=== PATIENT | male | born 1965 | race Caucasian/White ===

== ENCOUNTER 2016-09-20 01:06 | Emergency (ER) | payer OTHER ==
--- NOTE | ~2016-09-20 | ER ---
PATIENT'S NAME: [facility] AGE: 51 Y [address] ROOM: [place] [id number] LOCATION: [facility] ADMIT DATE: 09/20/2016 ER/Outpatient Report DISCHARGE DATE: 09/20/2016 FAMILY PHYSICIAN: Manny Hunt MD ATTENDING PHYSICIAN: Trae Suarez HISTORY OF PRESENT ILLNESS: A 51-year-old male who presents today with chief complaint of left lower back pain. The patient says that approximately a week ago he was getting into his car and his car was lower than expected so he was getting to go in the car and he said he tweaked his left lower back. It was gradually getting worse and then today it was so bad that he decided to come in. He has taken nothing for it in the last 24 hours. He says he takes aspirin, but he cannot take any other antiinflammatories because of his kidney issues. Denies any urinary symptoms. No bleeding, no blood in urine, no urinary frequency, no penile discharge. He states that it feels like a bad muscle spasms. He says the pain just stays in his left lower back and does not radiate down his leg or up his back. Does not radiate to the front. No other complaints at this time. He denies any bowel or bladder incontinence or retention. PAST MEDICAL HISTORY: Includes GERD, peptic ulcer disease, hypertension, asthma, gout, and depression. SURGICAL HISTORY: Removal of foreign body in chest and right eye surgery. SOCIAL HISTORY: He smokes one pack per day and has done so for 10 years. MEDICATIONS: Please see med list. ALLERGIES: PLEASE SEE MED LIST. REVIEW OF SYSTEMS: Reviewed by me and negative with the exception of those discussed in the HPI. PHYSICAL EXAMINATION: VITAL SIGNS: The patient is 6 feet tall, he weighs 105.4 kilos. Blood pressure 144/78, heart rate 59, respiratory rate 18, temp is 97.7, and satting 98% on room air. GENERAL: The patient looks mildly uncomfortable. He was able to walk into the ER on his own although with a slight limp. His heart rate is regular rate PATIENT'S NAME: [facility] AGE: 51 Y [address] ROOM: [place] [id number] LOCATION: [facility] ADMIT DATE: 09/20/2016 ER/Outpatient Report DISCHARGE DATE: 09/20/2016 FAMILY PHYSICIAN: Manny Hunt MD ATTENDING PHYSICIAN: Trae Suarez and rhythm at 62 beats per minute at this time. He is alert and oriented x4. He smells like cigarette smoke. LUNGS: His lung sounds are slightly diminished throughout, but no wheezing, rales, or rhonchi. No increased work of breathing. HEART: Regular rate and rhythm. ABDOMEN: Soft, nontender, nondistended. SKIN: Warm, dry, and intact. BACK: He has no C-spine tenderness. No thoracic spine tenderness. No lumbar spine tenderness. No S-spine tenderness. Max tenderness is a spot in the left lower paraspinal lumbar area. Strength bilateral lower extremities is 5/5 and he has no urinary retention. IMPRESSION: Lower back pain. PLAN: The patient given a script for Flexeril and asked to follow up with his primary doctor. He can also take Tylenol every 4 hours. TRAE SUAREZ MD CAW/modl /[id number] d: 09/20/16 0330 t: 09/23/16 1818, OUTPATIENT REPORT
[~2016-09-20 01:06] MED LIST: ADVAIR 250-501 EACH INH; ALLOPURINOL100 MG PO; AMBIEN5 MG PO; ARTHROTEC 50 M1 EACH PO; ASPIRIN LO-DOSE81 MG PO; EFFEXOR75 MG PO; K-TAB 10MEQ10 MEQ PO; K-TAB ER20 MEQ PO; LIPITOR80 MG PO; MAG-OX-400(241400 MG PO; NICODERM/HABITR21 MG TRANS; NORVASC5 MG PO; PROAIR HFA8.5 GM INH; PROZAC40 MG PO; REMERON15 MG PO; TYLENOL EXTRA500 MG PO; VASOTEC2.5 MG PO; WELLBUTRIN SR150 MG PO; ZANTAC (NON-FO150 MG PO; ZYLOPRIM100 MG PO
== END 2016-09-20 01:28 | disposition disaster alternative care site (69) ==
LOC: GACC 01:06
DX: M54.5 Low back pain (principal); F17.210 Nicotine dependence, cigarettes, uncomplicated; I10 Essential (primary) hypertension; K21.9 Gastro-esophageal reflux disease without esophagitis; J45.909 Unspecified asthma, uncomplicated; F32.9 Major depressive disorder, single episode, unspecified; Z88.8 Allergy status to other drugs, medicaments and biological substances